=== PATIENT | female | born 1970 | race Native Hawaiian/Other Pacific Islander ===

== ENCOUNTER 2017-10-15 14:44 | Outpatient (CLI) | payer OTHER | END 2017-10-15 14:45 | disposition home or self-care (01) | LOC: LABHHL 14:44 | PROVIDERS: ATTEND Specialist | DX: R92.0 Mammographic microcalcification found on diagnostic imaging of breast (principal) | CPT/HCPCS: 88305; 88342; 88361 ==

== ENCOUNTER 2017-10-29 12:58 | Outpatient (CLI) | payer BC ==
--- NOTE | 2017-10-29 16:11 | Magnetic Resonance Report ---
BILATERAL BREAST MRI WITHOUT AND WITH CONTRAST: 10/29/17 12:58:00 CLINICAL: Newly diagnosed right breast cancer. Status post right stereotactic biopsy of calcifications on 10/15/17 with pathologic diagnosis of ductal carcinoma in situ, high nuclear grade, ER/[place] +100%. COMPARISON:09/30/17, 10/07/17 and 10/21/17 mammograms.. TECHNIQUE: Axial 1.0-mm T1 without, axial high resolution 2.0-mm T2 and axial 1.0-mm dynamic Vibrant high-resolution postcontrast T1 fat saturation sequences on a 1.5 Zhanna magnet. The examination was performed with an 8 channel dedicated [place] breast coil. Post processing with CAD and subtraction was performed on an Step-In workstation. 16.0 cc of Multihance was injected without incident for the contrast portion of the exam. Consent was obtained prior to the administration of the contrast. FINDINGS: Right: Mild background parenchymal enhancement. A postbiopsy hematoma is identified at 12 o'clock approximately 6 cm from the nipple and measures 2.2 x 1.3 x 1.4 cm. A localizer clip is identified dependent within the cavity with the hematoma. A round enhancing mass with an irregular margin is identified at the medial posterior aspect of the hematoma and the mass measures 1.2 x 1.2 x 1.1 cm. It demonstrates heterogeneous enhancement with mixed kinetics, 155% peak enhancement, 12% type I persistent, 43% type II plateau and 45% type III washout waveforms. No other mass or suspicious enhancement of the right breast. No suspicious right axillary or right internal mammary lymph nodes. Left: Mild background parenchymal enhancement. No mass or suspicious enhancement. The left nipple is retracted with no associated mass or abnormal enhancement. No suspicious left axillary or left internal mammary lymph nodes. IMPRESSION: 1. Known right breast cancer with a 1.2 cm mass at the margin of the recent stereotactic biopsy site. 2. No other suspicious lesion of either breast. 3. No suspicious lymph nodes. RIGHT BI-RADS 6 -- Known Cancer LEFT BI-RADS 1 -- Negative
== END 2017-10-29 12:59 | disposition home or self-care (01) ==
LOC: SPVIMAG 12:58
PROVIDERS: ATTEND Surgery
DX: C50.411 Malignant neoplasm of upper-outer quadrant of right female breast (principal)
CPT/HCPCS: A9577; C8908; 77059

== ENCOUNTER 2017-11-04 15:23 | Outpatient (CLI) | payer OTHER | END 2017-11-04 15:24 | disposition home or self-care (01) | LOC: LABHHL 15:23 | PROVIDERS: ATTEND Surgery | DX: N63.14 Unspecified lump in the right breast, lower inner quadrant (principal) | CPT/HCPCS: 88305; 88342; 88361; 88368 ==

== ENCOUNTER 2018-09-02 14:12 | Outpatient (CLI) | payer BC ==
--- NOTE | 2018-09-02 14:59 | Ultrasound Report ---
Left breast ultrasound: Recent mammogram. Patient feels thickening in the upper outer left breast. No significant mammographic change since September 2017. Imaging of the area of concern in the 12:00 location approximately 6 cm from nipple demonstrates mild inhomogeneity with a pattern relatively consistent with fibrocystic change. No definable mass in this location. In the 3:00 location there is a circumscribed slightly elongated homogeneously hypoechoic nodule with a maximum dimension of 3 mm. This is 4 cm from the nipple. Impressions: Probably benign lesion at 3:00. No abnormality in the area of palpable thickening at 12:00. Recommendation: Repeat ultrasound in 6 months to confirm stability of the 3:00 lesion. BI-RADS CATEGORY: 3 = Probably benign ACR BI-RADS MAMMOGRAPHIC CODES: 0 = Needs additional imaging evaluation; 1 = Negative; 2 = Benign; 3 = Probably benign; 4 = Suspicious; 5 = Malignant; 6 = Known biopsy-proven malignancy COMMENT: 1. Dense breast tissue, i.e., adenosis, fibrocystic changes, etc., may obscure an underlying neoplasm. 2. Approximately 10% of cancers are not detected with mammography. 3. A negative mammography report should not delay biopsy if a clinically suspicious mass is present.
== END 2018-09-02 14:13 | disposition home or self-care (01) ==
LOC: SPVWC 14:12
PROVIDERS: ATTEND Surgery
DX: Z85.3 Personal history of malignant neoplasm of breast (principal); E78.00 Pure hypercholesterolemia, unspecified; I10 Essential (primary) hypertension; K21.9 Gastro-esophageal reflux disease without esophagitis; E03.9 Hypothyroidism, unspecified; Z90.49 Acquired absence of other specified parts of digestive tract

== ENCOUNTER 2020-02-15 15:31 | Emergency (ER) | payer BC, MEDICAID ==
[2020-02-15 16:03] VITALS: BP 161/79
--- NOTE | 2020-02-15 17:02 | Emergency Department Report ---
ED Upper Extremity Inj HPI - General Chief Complaint: Extremity Injury, Upper Stated Complaint: LT ARM PAIN/HAND NUMB TINGLING Time Seen by Provider: 02/15/20 16:48 Source: patient Mode of arrival: Ambulatory Limitations: No Limitations - History of Present Illness Initial Comments: Patient is a 49-year-old female presents emergency room complaints of left shoulder pain that began 4 days ago. Patient states that she was cleaning up her room and she was making her bed and states that she shook the comforter very hard and felt a pulling sensation then began to feel pain in her left shoulder. She states that she feels tingling in the left fingers. She denies ever injuring this shoulder in the past. She denies any complete numbness or weakness. She states that she has pain when she tries to raise up the shoulder. She denies any fever, nausea, vomiting, diarrhea, diaphoresis, chest pain, shortness of breath. She has a past medical history of hyperlipidemia, HTN, and breast cancer in remission for 2 years. She denies any medication allergies. - Related Data Home Medications Medication Instructions Recorded Confirmed Last Taken Cyanocobalamin (Vitamin B-12) 2,500 mcg PO DAILY 12/24/17 12/24/17 12/26/17 [Vitamin B12] Levothyroxine [Synthroid] 125 mcg PO QAM 12/24/17 12/24/17 12/26/17 Pantoprazole [Protonix] 40 mg PO QDAY 12/24/17 12/27/17 12/27/17 06:00 Simvastatin 20 mg PO DAILY 12/24/17 12/24/17 12/26/17 lisinopriL [Zestril TAB] 40 mg PO DAILY 12/24/17 12/27/17 12/27/17 06:00 metFORMIN [Glucophage] 500 mg PO QDAY 12/24/17 12/24/17 12/26/17 Previous Rx's Medication Instructions Recorded Last Taken Type HYDROcodone/APAP 5-325 [[place] 1 each PO Q6HR PRN #30 tablet 12/27/17 Unknown Rx 5/325] Naproxen [EC-Naprosyn] 500 mg PO BID PRN #14 tablet. 02/15/20 Unknown Rx Prednisone [predniSONE 10 mg 10 mg PO .TAPER #1 tab.ds.pk 02/15/20 Unknown Rx (6-Day Pack, 21 Tabs)] methOCARBAMOL [Robaxin TAB] 500 mg PO BID PRN #14 tab 02/15/20 Unknown Rx Allergies Allergy/AdvReac Type Severity Reaction Status Date / Time No Known Allergies Allergy Verified 12/24/17 11:56 ED Review of Systems ROS: Stated complaint: LT ARM PAIN/HAND NUMB TINGLING Other details as noted in HPI Comment: All other systems reviewed and negative ED Past Medical Hx - Past Medical History Previous Medical History?: Yes Hx Hypertension: Yes (2010 ON MEDS DUE TO DM NOT BP) Hx Diabetes: Yes (2010 ORAL MEDS ONLY) Hx GERD: Yes (PROTONIX) Hx HIV: No - Surgical History Past Surgical History?: Yes Hx Cholecystectomy: Yes Hx Appendectomy: Yes Hx Breast Surgery: (R BREAST BX) - Social History Smoking Status: Never Smoker - Medications Home Medications: Home Medications Medication Instructions Recorded Confirmed Last Taken Type Cyanocobalamin (Vitamin B-12) 2,500 mcg PO DAILY 12/24/17 12/24/17 12/26/17 History [Vitamin B12] Levothyroxine [Synthroid] 125 mcg PO QAM 12/24/17 12/24/17 12/26/17 History Pantoprazole [Protonix] 40 mg PO QDAY 12/24/17 12/27/17 12/27/17 06:00 History Simvastatin 20 mg PO DAILY 12/24/17 12/24/17 12/26/17 History lisinopriL [Zestril TAB] 40 mg PO DAILY 12/24/17 12/27/17 12/27/17 06:00 History metFORMIN [Glucophage] 500 mg PO QDAY 12/24/17 12/24/17 12/26/17 History HYDROcodone/APAP 5-325 [[place] 1 each PO Q6HR PRN #30 tablet 12/27/17 Unknown Rx 5/325] Naproxen [EC-Naprosyn] 500 mg PO BID PRN #14 tablet.dr 02/15/20 Unknown Rx Prednisone [predniSONE 10 mg 10 mg PO .TAPER #1 tab.ds.pk 02/15/20 Unknown Rx (6-Day Pack, 21 Tabs)] methOCARBAMOL [Robaxin TAB] 500 mg PO BID PRN #14 tab 02/15/20 Unknown Rx ED Physical Exam - General Limitations: No Limitations General appearance: alert, in no apparent distress - Head Head exam: Present: atraumatic, normocephalic - Eye Eye exam: Present: normal appearance - ENT ENT exam: Present: mucous membranes moist - Respiratory Respiratory exam: Present: normal lung sounds bilaterally. Absent: respiratory distress, wheezes, rales, rhonchi, stridor, chest wall tenderness, accessory muscle use, decreased breath sounds, prolonged expiratory - Cardiovascular Cardiovascular Exam: Present: regular rate, normal rhythm, normal heart sounds. Absent: systolic murmur, diastolic murmur, rubs, gallop - Extremities Exam Extremities exam: Present: other (left anterior shoulder ttp, no deformity, clavicles are equal, no sulcus sign, unable to fully raise left shoulder secondary to pain, neurovascularly intact) - Neurological Exam Neurological exam: Present: alert, oriented X3, CN II-XII intact, normal gait. Absent: motor sensory deficit - Psychiatric Psychiatric exam: Present: normal affect, normal mood - Skin Skin exam: Present: warm, dry, intact ED Course Vital Signs 02/15/20 16:02 Temperature 97.8 F Pulse Rate 78 Respiratory 16 Rate Blood Pressure 161/79 [Right] O2 Sat by Pulse 98 Oximetry ED Medical Decision Making - Radiology Data Radiology results: report reviewed LEFT SHOULDER 3 VIEWS INDICATION / CLINICAL INFORMATION: left shoulder pain COMPARISON: None available. FINDINGS: BONES / JOINT(S): No acute fracture or subluxation. Joint spaces are maintained. There is a small amount of dystrophic calcification consistent with calcific tendinosis SOFT TISSUES: No significant abnormality. ADDITIONAL FINDINGS: None. Signer Name: Stanley Anderson MD Signed: 02/15/2020 5:15 PM Workstation Name: [id number] Transcribed By: SS Dictated By: Stanley Anderson MD Electronically Authenticated By: Stanley Anderson MD Signed Date/Time: 02/15/201714 DD/ 12 TD/TT: - Medical Decision Making Patient is a 49-year-old female presents emergency room complaints of left shoulder pain that began 4 days ago. Patient states that she was cleaning up her room and she was making her bed and states that she shook the comforter very hard and felt a pulling sensation then began to feel pain in her left shoulder. She states that she feels tingling in the left fingers. She denies ever injuring this shoulder in the past. She denies any complete numbness or weakness. She states that she has pain when she tries to raise up the shoulder. She denies any fever, nausea, vomiting, diarrhea, diaphoresis, chest pain, shortness of breath. She has a past medical history of hyperlipidemia, HTN, and breast cancer in remission for 2 years. She denies any medication allergies. VSS. on exam:left anterior shoulder ttp, no deformity, clavicles are equal, no sulcus sign, unable to fully raise left shoulder secondary to pain, neurovascularly intact. XR left shoulder: BONES / JOINT(S): No acute fracture or subluxation. Joint spaces are maintained. There is a small amount of dystrophic calcification consistent with calcific tendinosis. SOFT TISSUES: No significant abnormality. ADDITIONAL FINDINGS: None. Examination concerning for rotator cuff injury versus rotator cuff tendinitis. Discussed all findings with patient answered questions. No clinical signs or symptoms of gout, septic joint, DVT, patient is neurovascularly intact. Advised patient that she would need to follow-up with orthopedic doctor for further evaluation of the rotator cuff. Patient given prescription for naproxen, Robaxin, prednisone. Advised patient Please use medication as prescribed. Do not drive or operate machinery while taking muscle relaxer Robaxin. Use ice pack, heating pad, rest, Epsom salt bath. Follow-up with orthopedic doctor for further evaluation. Return to emergency room immediately for any new or worsening symptoms. Critical care attestation.: If time is entered above; I have spent that time in minutes in the direct care of this critically ill patient, excluding procedure time. ED Disposition Clinical Impression: Calcific tendinitis Left shoulder pain Qualifiers: Chronicity: acute Qualified Code(s): M25.512 - Pain in left shoulder Disposition: DC-01 TO HOME OR SELFCARE Is pt being admited?: No Does the pt Need Aspirin: No Condition: Stable Instructions: Rotator Cuff Tendinitis, Shoulder Pain, Tendinitis Additional Instructions: Please use medication as prescribed. Do not drive or operate machinery while taking muscle relaxer Robaxin. Use ice pack, heating pad, rest, Epsom salt bath. Follow-up with orthopedic doctor for further evaluation. Return to emergency room immediately for any new or worsening symptoms. Prescriptions: Naproxen [EC-Naprosyn] 500 mg PO BID PRN #14 tablet.dr CAMERON Reason: pain Prednisone [predniSONE 10 mg (6-Day Pack, 21 Tabs)] 10 mg PO .TAPER #1 tab.ds.pk methOCARBAMOL [Robaxin TAB] 500 mg PO BID PRN #14 tab PRN Reason: pain Referrals: TILA SANTOS MD [Primary Care Provider] - 2-3 Days AJAY MILLS MD [Staff Physician] - 2-3 Days [facility] [Provider Group] - 2-3 Days Time of Disposition: 17:25 Print Language: KUWAITI
--- NOTE | 2020-02-15 17:19 | XRay Report ---
LEFT SHOULDER 3 VIEWS INDICATION / CLINICAL INFORMATION: left shoulder pain COMPARISON: None available. FINDINGS: BONES / JOINT(S): No acute fracture or subluxation. Joint spaces are maintained. There is a small krysten unt of dystrophic calcification consistent with calcific tendinosis SOFT TISSUES: No significant abnormality. ADDITIONAL FINDINGS: None. Signer Name: Stanley Anderson MD Signed: 02/15/2020 5:15 PM Workstation Name: [id number]
== END 2020-02-15 17:42 | disposition home or self-care (01) ==
LOC: ED 15:31
DX: M75.32 Calcific tendinitis of left shoulder (principal); M25.512 Pain in left shoulder; I10 Essential (primary) hypertension; E11.9 Type 2 diabetes mellitus without complications; K21.9 Gastro-esophageal reflux disease without esophagitis; Z98.890 Other specified postprocedural states; Z79.899 Other long term (current) drug therapy